=== PATIENT | female | born 1960 | race Caucasian/White ===

== ENCOUNTER → 2023-10-26 | Day surgery (SDC) | payer BC ==
[~2023-10-26] MED LIST: Depo-Medrol 40 MG/ML IM ONE; Lactated Ringers 1,000 ML IV ONE; XYLOCAINE-MPF 1% 5ML SDV IJ ONE
--- NOTE | 2023-10-26 19:47 | XRAY ---
Indication: Lumbar PADMINI. Intraoperative fluoroscopy provided for 1 minute 4 seconds. 9 digital spot image submitted for interpretation demonstrates initial needle tip projecting posterior to lumbosacral junction. Second needle tip posterior to L4-L5 interspace with small amount of contrast injected for needle tip placement. Correlate with intraoperative findings/report.
== END ==
LOC: SDC-PAIN 14:39
PROVIDERS: ATTEND Psychiatry & Neurology Pain Medicine
DX: M54.16 Radiculopathy, lumbar region (principal)
CPT/HCPCS: 62323; 72100; 77003; J1030; Q9966

== ENCOUNTER 2025-08-28 10:11 | Day surgery (SDC) | payer BC ==
[2025-08-28] MEDS ORDERED: methylPREDNISolone acetate IM ONE (10:12)
[2025-08-28] MEDS ORDERED: Sodium Chloride 0.9(Preservative Free) 10 ML IJ ONE (10:12)
[2025-08-28] MEDS ORDERED: LIDOCAINE HCL 1% 50 MG/5 ML VL IJ ONE (10:12)
[2025-08-28] MEDS ORDERED: propofoL IV ONE (12:44)
[2025-08-28] MEDS ORDERED: Lactated Ringers 1,000 ML IV ONE (14:03)
--- NOTE | 2025-08-28 15:01 | XRAY ---
Indication: Lumbar PADMINI. Intraoperative fluoroscopy provided for 15 seconds. 4 digital spot image submitted for interpretation demonstrates posterior needle tip projecting posterior to L4-L5 interspace. Small amount of contrast injected for needle tip placement. Correlate with intraoperative findings/report.
--- NOTE | 2025-08-28 15:04 | XRAY ---
15 seconds of fluoroscopy was used in surgery for a lumbar PADMINI.
== END 2025-08-28 13:20 | disposition home or self-care (01) ==
LOC: SDC-PAIN 10:11
PROVIDERS: ATTEND Psychiatry & Neurology Pain Medicine
DX: M54.16 Radiculopathy, lumbar region (principal)